=== PATIENT | female | born 1975 | race Caucasian/White ===

== ENCOUNTER 2022-08-09 20:03 | Emergency (ER) | payer MEDICARE, MEDICAID ==
[~2022-08-09] VITALS: Ht 167.6 cm; Wt 82.0 kg
[2022-08-09 20:08] VITALS: O2SAT 99
[2022-08-09 20:55] LABS: BASOPHILS % 0.5 % (0.0-2.0); EOSINOPHILS % 2.5 % (0.0-5.0); HEMATOCRIT. 37.8 % (36.0-48.0); HEMOGLOBIN. 13.2 g/dL (12.0-16.0); LYMPHOCYTES % 27.6 % (20.0-50.0); MEAN CORPUSCULAR HEMOGLOBIN 31.2 pg (28.0-32.0); MEAN CORPUSCULAR VOLUME 89.7 fL (81.0-99.0); MEAN PLATELET VOLUME 6.9 fl (7.4-10.4); MONOCYTES % 6.4 % (2.0-8.0); PLATELET 306 x1000/uL (130-400); RED BLOOD CELL COUNT 4.22 mill/uL (4.2-5.4); RED CELL DISTRIBUTION WIDTH 16.4 % (11.6-14.6)
[2022-08-09 20:57] LABS: CLARITY URINE CLOUDY (CLEAR); COLOR URINE YELLOW (YELLOW); KETONES URINE TRACE (NEGATIVE); LEUKOCYTE ESTERASE URINE 3+ (NEGATIVE); NITRITE URINE NEGATIVE (NEGATIVE); OCCULT BLOOD URINE 2+ (NEGATIVE); PH URINE 8.5 (4.5-8.0); PROTEIN URINE TRACE (NEGATIVE); SPECIFIC GRAVITY URINE 1.019 (1.005-1.030)
[2022-08-09 21:04] LABS: CHLORIDE 106 mEq/L (98-107)
[2022-08-09 21:08] LABS: *AMPHETAMINES SCREEN URINE NEGATIVE (NEGATIVE); *BARBITURATES SCREEN URINE NEGATIVE (NEGATIVE); *BENZODIAZEPINES SCREEN URINE NEGATIVE (NEGATIVE); *COCAINE SCREEN URINE NEGATIVE (NEGATIVE); CANNABINOID URINE SCREEN NEGATIVE (NEGATIVE); METHADONE URINE SCREEN NEGATIVE (NEGATIVE); OPIATES URINE SCREEN NEGATIVE (NEGATIVE); PHENCYCLIDINE URINE SCREEN NEGATIVE (NEGATIVE)
[2022-08-09 21:08] LABS: ETHANOL BLOOD < 10 mg/dL (-10)
[2022-08-09 21:15] LABS: HCG SCREEN NEGATIVE
[2022-08-09] MEDS ORDERED: LORAZEPAM 2MG/ML CPJ IM ONE (22:15)
[2022-08-09] MEDS ORDERED: OLANZAPINE 10 MG/VIAL IM ONE (22:15)
[2022-08-10] MEDS: CEPHALEXIN 250MG CAPSULE PO SCH ×3 (00:07→13:36)
[2022-08-10] MEDS ORDERED: LORAZEPAM 1MG TABLET PO ONE (04:45)
[2022-08-10] MEDS ORDERED: NITR100C PO (13:45)
[2022-08-10 14:23] VITALS: BP 123/62; PULSE 77; RESP 14; TEMP 98.1
== END 2022-08-10 14:27 | disposition home or self-care (01) ==
LOC: ER 20:03
DX: F22 Delusional disorders (principal); F20.9 Schizophrenia, unspecified; N39.0 Urinary tract infection, site not specified; D64.9 Anemia, unspecified; J44.9 Chronic obstructive pulmonary disease, unspecified; E11.9 Type 2 diabetes mellitus without complications; I10 Essential (primary) hypertension
CPT/HCPCS: 80053; 80305; 81003; 80307; 80329; 80320; 84703; 85025; 87086; 36415; 96372; 99285; J3490; J2060; G0480